=== PATIENT | male | born 1945 | race Caucasian/White ===

== ENCOUNTER → 2019-01-16 | Day surgery (SDC) | payer MEDICARE, OTHER ==
[2019-01-15 10:48] LABS: BASOPHILS % 0.2 % (0.0-1.0); EOSINOPHILS # (AUTO) 0.1 (0.0-0.4); EOSINOPHILS % 2.3 % (0.0-6.0); HEMATOCRIT 45.6 % (38.2-49.6); LYMPHOCYTES # (AUTO) 1.6 (1.0-3.2); LYMPHOCYTES % 32.1 % (18.0-39.1); MEAN CORPUSCULAR HEMOGLOBIN 31.2 pg (28-32); MEAN CORPUSCULAR HGB CONC 32.9 g/dL (31-35); MEAN CORPUSCULAR VOLUME 94.8 fL (81-99); MONOCYTES # (AUTO) 0.5 (0.2-0.8); MONOCYTES % 9.3 % (4.4-11.3); NEUTROPHILS # (AUTO) 2.7 (2.1-6.9); NEUTROPHILS % 55.9 % (38.7-80.0); PLATELET COUNT 215 x10e3/uL (140-360); RED BLOOD COUNT 4.81 x10e6/uL (4.3-5.7); RED CELL DISTRIBUTION WIDTH 14.5 % (11.7-14.4)
[~2019-01-16] MED LIST: ASPIRIN81 MG; ATORVASTATIN CA10 MG PO; FENTANYL CITRATE/PF 100MCG/2 ML INJ ONE; FUROSEMIDE40 MG PO; GABAPENTIN300 MG PO; HYDROCHLOROTHIA25 MG; LISINOPRIL-HCT1 EAC1; LOSARTAN POTASS25 MG; MAGNESIUM; METFORMIN HCL500 MG PO; METOPROLOL TART50 MG PO; MIDAZOLAM HCL 2 MG/2 ML VIAL ONE; POTASSIUM; PRO AIR HFA; PROPOFOL IV EMULSION 10 MG/ML 50 ML VIAL ONE; VITAMIN B-121000 MCG PO
--- OUTSIDE RECORDS SUMMARY | 2019-01-16 10:15 | XMS REPORT | Clinical Summary ---
Author Author [facility] Organization [facility] Address Unknown Phone Unavailable Care Team Providers Care Release Of Information Specialist Name Role Phone Asked, No Pcp PCP Unavailable Allergies No Known Allergies Medications End Date Status Medication Sig Dispensed Refills Start Date Active metFORMIN (GLUCOPHAGE) Take 500 mg 0 500 mg tablet by mouth daily with breakfast. Active atorvastatin (LIPITOR) 10 Take 10 mg by 0 MG tablet mouth daily. Active metoprolol tartrate Take 50 mg by 0 (LOPRESSOR) 50 mg tablet mouth 2 (two) times a day. Active hydroCHLOROthiazide Take 25 mg by 0 (HYDRODIURIL) 25 MG mouth daily. tablet Active lisinopril Take 10 mg by 0 (PRINIVIL,ZESTRIL) 10 mg mouth daily. tablet 05/20/2018 Discontinued metoprolol succinate XL Take 50 mg by 0 (TOPROL-XL) 50 mg 24 hr mouth 2 (two) tablet times a day. 05/21/2018 Discontinued metroNIDAZOLE (FLAGYL) Take 1 tablet 30 tablet 0 500 MG tablet (500 mg 8 total) by mouth 3 (three) times a day for 10 days. 05/21/2018 Discontinued acetaminophen-codeine Take 1 tablet 20 tablet 0 (TYLENOL WITH CODEINE #3) by mouth 8 300-30 mg per tablet every 4 (four) hours as needed for moderate pain for up to 10 days. 05/31/2018 metroNIDAZOLE (FLAGYL) Take 1 tablet 30 tablet 0 500 MG tablet (500 mg 8 total) by mouth 3 (three) times a day for 10 days. 05/31/2018 acetaminophen-codeine Take 1 tablet 20 tablet 0 (TYLENOL WITH CODEINE #3) by mouth 8 300-30 mg per tablet every 4 (four) hours as needed for moderate pain for up to 10 days. Active Problems Problem Noted Date Abdominal pain 05/20/2018 Encounters Care Team Description Date Type Specialty Chao Malin MD 10/10/2018 Telephone Pulmonology Bam Johnson Jr., MD Roberts, Matthew Thomas, Generalized abdominal pain (Primary Dx) 05/20/2018 Emergency General Internal Medicine - 05/21/2018 after 01/15/2018 Social History Date Tobacco Use Types Packs/Day Years Used Current Some Day Smoker 0.25 30 Smokeless Tobacco: Never Used Alcohol Use Drinks/Week oz/Week Comments Yes social Sex Assigned at Date Recorded Not on file Industry Job Start Date Occupation Not on file Not on file Not on file Travel End Travel History Travel Start No recent travel history available. Last Filed Vital Signs Time Taken Vital Sign Reading 05/21/2018 10:43 AM CDT Blood Pressure 103/51 05/21/2018 10:43 AM CDT Pulse 89 05/21/2018 10:43 AM CDT Temperature 36.7 C (98.1 F) 05/21/2018 10:43 AM CDT Respiratory Rate 16 05/21/2018 10:43 AM CDT Oxygen Saturation 95% - Inhaled Oxygen - Concentration 05/20/2018 5:57 AM CDT Weight 95.7 kg (211 lb) 05/20/2018 5:57 AM CDT Height 180.3 cm (5' 11") 05/20/2018 5:57 AM CDT Body Mass Index 29.43 Plan of Treatment Health Maintenance Due Date Last Done Comments COLON CANCER SCREENING 1997 SHINGLES VACCINES (#1) 1997 65+ PNEUMOCOCCAL VACCINE 2012 (1 of 2 - PCV13) PNEUMOCOCCAL 2012 POLYSACCHARIDE VACCINE AGE 65 AND OVER INFLUENZA VACCINE 06/21/2018 Procedures Comments Procedure Name Priority Date/Time Associated Diagnosis POC GLUCOSE Routine 05/21/2018 11:18 AM CDT US GALLBLADDER STAT 05/21/2018 7:59 AM CDT POC GLUCOSE Routine 05/21/2018 6:41 AM CDT ZZESTIMATED GFR Routine 05/21/2018 5:14 AM CDT HC COMPLETE BLD COUNT Routine 05/21/2018 W/AUTO DIFF 5:14 AM CDT BASIC METABOLIC PANEL Routine 05/21/2018 5:14 AM CDT POC GLUCOSE Routine 05/20/2018 9:15 PM CDT POC GLUCOSE Routine 05/20/2018 6:25 PM CDT POC GLUCOSE Routine 05/20/2018 12:[address] ABDOMEN PELVIS WO STAT 05/20/2018 CONTRAST 10:08 AM CDT TROPONIN Timed 05/20/2018 8:05 AM CDT ECG 12-LEAD STAT 05/20/2018 7:57 AM CDT ECG ED PRELIMINARY Routine 05/20/2018 INTERPRETATION 7:01 AM CDT LIPID PANEL Routine 05/20/2018 6:30 AM CDT HEMOGLOBIN A1C Routine 05/20/2018 6:30 AM CDT POC GLUCOSE Routine 05/20/2018 6:29 AM CDT ZZESTIMATED GFR STAT 05/20/2018 6:16 AM CDT LIPASE LEVEL STAT 05/20/2018 6:16 AM CDT COMPREHENSIVE METABOLIC STAT 05/20/2018 PANEL 6:16 AM CDT HC COMPLETE BLD COUNT STAT 05/20/2018 W/AUTO DIFF 6:16 AM CDT URINALYSIS SCREEN AND STAT 05/20/2018 MICROSCOPY, WITH REFLEX 6:10 AM CDT TO CULTURE URINE CULTURE STAT 05/20/2018 6:10 AM CDT after 01/15/2018 Results * POC glucose (05/21/2018 11:18 AM CDT) Only the most recent of 6 results within the time period is included. POC glucose 142 (H) 65 - 100 mg/dL [facility] Comment: PATHOLOGY AND Meter ID: [id number] GENOMIC MEDICINE Attendant Lodging Facilities: Viridiana Cotto Performing Organization Address City/State/Zipcode Phone Number [facility] [address] [place] [address] PATHOLOGY AND GENOMIC MEDICINE * US Gallbladder (05/21/2018 7:59 AM CDT) Narrative Performed At EXAMINATION:[facility]ICAL HISTORY:Gallbladder distension noted on CT scan COMPARISON:CT scan dated May 20, 2018 FINDINGS: Gallbladder: Echogenic shadowing calculi are identified. There is no gallbladder wall thickening or pericholecystic fluid suggest acute cholecystitis. CBD:5.5 mm , within normal limits. Portal vein: The portal vein demonstrates normal hepatopedal flow. The portal vein measures 9 mm. IMPRESSION: Cholelithiasis without sonographic evidence of cholecystitis. [facility]-[id number] Procedure Note Interface, Radiology Results Incoming - 05/21/2018 8:04 AM CDT EXAMINATION: US GALLBLADDER CLINICAL HISTORY: Gallbladder distension noted on CT scan COMPARISON: CT scan dated May 20, 2018 FINDINGS: Gallbladder: Echogenic shadowing calculi are identified. There is no gallbladder wall thickening or pericholecystic fluid suggest acute cholecystitis. CBD: 5.5 mm , within normal limits. Portal vein: The portal vein demonstrates normal hepatopedal flow. The portal vein measures 9 mm. IMPRESSION: Cholelithiasis without sonographic evidence of cholecystitis. [facility]-[id number] Performing Organization Address City/[facility]/Zipcode Phone Number [facility] [address] [place] [address] * Estimated GFR (05/21/2018 5:14 AM CDT) Only the most recent of 2 results within the time period is included. GFR Non Af Amer 54 (A) mL/min/1.73 m2 [facility] PATHOLOGY AND GENOMIC MEDICINE GFR Af Amer 66 mL/min/1.73 m2 [facility] Comment: PATHOLOGY AND Chronic kidney disease: <60 GENOMIC MEDICINE mL/min/1.73m2 Kidney failure: <15 mL/min/1.73m2 The estimated GFR is calculated from the IDMS-traceable Modification of Diet in Renal Disease Equation. The accuracy of the calculation is poor when the creatinine is normal. Calculated values >90 mL/min/1.73m2 are not reported. This equation has not been validated in children (<18 years), women, the elderly (>70 years), or ethnic groups other than Caucasians and Americans. Specimen Plasma specimen Performing Organization Address City/State/Zipcode Phone Number [place] [phone] [place] [address] PATHOLOGY AND GENOMIC MEDICINE * CBC with platelet and differential (05/21/2018 5:14 AM CDT) Only the most recent of 2 results within the time period is included. WBC 10.9 4.2 - 11.0 k/uL [facility] PATHOLOGY AND GENOMIC MEDICINE RBC 4.45 4.04 - 5.86 m/uL [facility] PATHOLOGY AND GENOMIC MEDICINE HGB 14.0 13.0 - 17.3 g/dL [facility] PATHOLOGY AND GENOMIC MEDICINE HCT 42.9 34.0 - 45.0 % [facility] PATHOLOGY AND GENOMIC MEDICINE MCV 96.4 80.0 - 98.0 fL [facility] PATHOLOGY AND GENOMIC MEDICINE MCH 31.5 27.0 - 34.0 pg [facility] PATHOLOGY AND GENOMIC MEDICINE MCHC 32.6 31.5 - 36.5 g/dL [facility] PATHOLOGY AND GENOMIC MEDICINE RDW - SD 49.1 37.0 - 51.0 fL [facility] PATHOLOGY AND GENOMIC MEDICINE MPV 10.2 7.4 - 10.4 fL [facility] PATHOLOGY AND GENOMIC MEDICINE Platelet count 208 150 - 400 k/uL [facility] PATHOLOGY AND GENOMIC MEDICINE Nucleated RBC 0.00 /100 WBC [facility] PATHOLOGY AND GENOMIC MEDICINE Neutrophils 75.4 (H) 36.0 - 66.0 % [facility] PATHOLOGY AND GENOMIC MEDICINE Lymphocytes 12.8 (L) 24.0 - 44.0 % [facility] PATHOLOGY AND GENOMIC MEDICINE Monocytes 10.9 (H) 0.0 - 6.0 % [facility] PATHOLOGY AND GENOMIC MEDICINE Eosinophils 0.2 0.0 - 6.0 % [facility] OF PATHOLOGY AND GENOMIC MEDICINE Basophils 0.2 0.0 - 1.2 % [facility] OF PATHOLOGY AND GENOMIC MEDICINE Immature granulocytes 0.5 0.0 - 1.0 % [facility] PATHOLOGY AND GENOMIC MEDICINE Specimen Blood Performing Organization Address City/State/Zipcode Phone Number [place] [address] [place] [id number] PATHOLOGY AND GENOMIC MEDICINE * Basic metabolic panel (05/21/2018 5:14 AM CDT) Sodium 137 135 - 150 mEq/L [facility] PATHOLOGY AND GENOMIC MEDICINE Potassium 4.0 3.5 - 5.0 mEq/L [facility] PATHOLOGY AND GENOMIC MEDICINE Chloride 101 98 - 112 mEq/L [facility] PATHOLOGY AND GENOMIC MEDICINE CO2 22 (L) 24 - 31 mmol/L [facility] PATHOLOGY AND GENOMIC MEDICINE Anion gap 14@ANIO 7 - 15 mEq/L [facility] [facility] PATHOLOGY AND GENOMIC MEDICINE BUN 16 7 - 18 mg/dL [facility] PATHOLOGY AND GENOMIC MEDICINE Creatinine 1.30 (H) 0.70 - 1.20 mg/dL [facility] PATHOLOGY AND GENOMIC MEDICINE Glucose 136 (H) 65 - 100 mg/dL [facility] PATHOLOGY AND GENOMIC MEDICINE Calcium 8.8 8.8 - 10.2 mg/dL [facility] PATHOLOGY AND GENOMIC MEDICINE Specimen Plasma specimen Performing Organization Address City/State/Zipcode Phone Number [place] [phone] [place] [address] PATHOLOGY AND [facility] * CT Abdomen Pelvis Wo Contrast (05/20/2018 10:08 AM CDT) Narrative Performed At EXAMINATION:CT ABDOMEN PELVIS WO CONTRAST [facility] CLINICAL HISTORY:abd painvomiting TECHNIQUE: Noncontrast images of the abdomen and pelvis were obtained without intravenous iodinated contrast. The lack of intravenous contrast limits assessment of the solid organs. CT imaging was performed with iterative reconstruction technique and/or automated exposure control to reduce radiation dose. COMPARISON: None available FINDINGS: ABDOMEN: No visible free air or fluid is seen in the abdomen. Limited assessment of the solid organs in the absence of intravenous contrast. 1. Liver: No focal liver lesion can be seen on this unenhanced examination. 2. Gallbladder: The gallbladder is mildly distended. 3. Spleen: The spleen is not enlarged. There are calcified granulomata throughout the spleen. 4. Pancreas: Mild fatty infiltration of the pancreas. No discrete pancreatic lesion can be visualized. There is no abnormal ductal dilatation. 5. Adrenal Glands: The adrenal glands are unremarkable. 6. Kidneys: Mild scarring of the kidneys bilaterally with cortical thinning. Perinephric stranding may be secondary to underlying medical renal disease although correlation with urinalysis is recommended. Definite solid mass or stone is seen in either kidney. There is no evidence of hydronephrosis, hydroureter, or discrete ureteral calculus seen. 7. Abdominal Aorta: Atherosclerosis and ectasia of the abdominal aorta without evidence of a discrete aneurysm. Atherosclerosis of the iliac vessels. 8. Nodes: No significant adenopathy is noted in the upper abdomen, retroperitoneum, or root of the mesentery. 9. Bowel: Pancolonic diverticulosis without findings to suggest acute diverticulitis. The appendix is tortuous but normal. There are no findings to suggest a small bowel obstruction. The stomach is decompressed but otherwise unremarkable. 10. Ascites: No ascites is seen. There is a small fat-containing umbilical hernia. PELVIS: 1.Pelvis: The prostate is enlarged. Bilateral fat-containing inguinal hernias. The bladder is unremarkable. Vascular calcifications. Dystrophic calcification in the left rectus femoris muscles consistent with old injury. There is no free fluid seen in the pelvis. No enlarged iliac chain or pelvic sidewall lymph nodes. 2. Bones: Degenerative changes of the osseous structures. No suspicious lesions. Prior fixation across the right sacroiliac joints. 3. Lung Bases: Atherosclerosis of the coronary arteries and thoracic aorta. There are scattered calcified granulomata in the lung bases as well as some paraseptal emphysematous changes in both lower lobes. Bilateral lower lobe scarring and atelectasis. IMPRESSION: 1. Pancolonic diverticulosis without findings to suggest acute diverticulitis. 2. No evidence of bowel obstruction. 3. Mild distention of the gallbladder which can be correlated with gallbladder ultrasound. [id number] Procedure Note [facility], Radiology Results - 05/20/2018 10:17 AM CDT EXAMINATION: CT ABDOMEN PELVIS WO CONTRAST CLINICAL HISTORY: abd pain vomiting TECHNIQUE: Noncontrast images of the abdomen and pelvis were obtained without intravenous iodinated contrast. The lack of intravenous contrast limits assessment of the solid organs. CT imaging was performed with iterative reconstruction technique and/or automated exposure control to reduce radiation dose. COMPARISON: None available FINDINGS: ABDOMEN: No visible free air or fluid is seen in the abdomen. Limited assessment of the solid organs in the absence of intravenous contrast. 1. Liver: No focal liver lesion can be seen on this unenhanced examination. 2. Gallbladder: The gallbladder is mildly distended. 3. Spleen: The spleen is not enlarged. There are calcified granulomata throughout the spleen. 4. Pancreas: Mild fatty infiltration of the pancreas. No discrete pancreatic lesion can be visualized. There is no abnormal ductal dilatation. 5. Adrenal Glands: The adrenal glands are unremarkable. 6. Kidneys: Mild scarring of the kidneys bilaterally with cortical thinning. Perinephric stranding may be secondary to underlying medical renal disease although correlation with urinalysis is recommended. Definite solid mass or stone is seen in either kidney. There is no evidence of hydronephrosis, hydroureter, or discrete ureteral calculus seen. 7. Abdominal Aorta: Atherosclerosis and ectasia of the abdominal aorta without evidence of a discrete aneurysm. Atherosclerosis of the iliac vessels. 8. Nodes: No significant adenopathy is noted in the upper abdomen, retroperitoneum, or root of the mesentery. 9. Bowel: Pancolonic diverticulosis without findings to suggest acute diverticulitis. The appendix is tortuous but normal. There are no findings to suggest a small bowel obstruction. The stomach is decompressed but otherwise unremarkable. 10. Ascites: No ascites is seen. There is a small fat-containing umbilical hernia. PELVIS: 1. Pelvis: The prostate is enlarged. Bilateral fat-containing inguinal hernias. The bladder is unremarkable. Vascular calcifications. Dystrophic calcification in the left rectus femoris muscles consistent with old injury. There is no free fluid seen in the pelvis. No enlarged iliac chain or pelvic sidewall lymph nodes. 2. Bones: Degenerative changes of the osseous structures. No suspicious lesions. Prior fixation across the right sacroiliac joints. 3. Lung Bases: Atherosclerosis of the coronary arteries and thoracic aorta. There are scattered calcified granulomata in the lung bases as well as some paraseptal emphysematous changes in both lower lobes. Bilateral lower lobe scarring and atelectasis. IMPRESSION: 1. Pancolonic diverticulosis without findings to suggest acute diverticulitis. 2. No evidence of bowel obstruction. 3. Mild distention of the gallbladder which can be correlated with gallbladder ultrasound. [id number] Performing Organization Address City/State/Zipcode Phone Number [employer] [address] [place] [address] * Troponin (05/20/2018 8:05 AM CDT) Troponin <0.30 0.00 - 0.30 ng/mL [facility] Comment: PATHOLOGY AND 0.11 - 1.49 [employer] ng/mlMay indicate increased risk of acute coronary syndrome. >=1.5 ng/ml Consistent with acute myocardial infarction. The diagnostic value of a single normal or non-diagnostic result is questionable.Serial samples at 2-6 hour intervals are required to rule out acute myocardial injury. Specimen Plasma specimen Performing Organization Address City/[facility]/Zipcode Phone Number [facility] [address] [place] [address] PATHOLOGY AND GENOMIC MEDICINE * ECG 12 lead (05/20/2018 7:57 AM CDT) Ventricular rate 77 [facility] Atrial rate 77 [facility] PA interval 186 [facility] QRSD interval 90 [facility] QT interval 388 [facility] QTC interval 439 [facility] P axis 1 81 [facility] QRS axis 1 83 [facility] T wave axis 74 [facility] EKG impression Normal sinus rhythm-Normal [facility] ECG-In automated comparison with ECG of 12-DEC-2015 07:42,-premature ventricular complexes are no longer present- Performing Organization Address City/State/[facility] Phone Number [facility] [address] [place] [address] * ECG ED Preliminary Interpretation - NOT AN ORDER (05/20/2018 7:01 AM CDT) Narrative Performed At Bam Johnson Jr., MD 05/22/20189:25 AM ECG ED Preliminary Interpretation - Not an Order Performed by: BAM JOHNSON JR. Authorized by: BAM JOHNSON JR. * Hemoglobin A1c (05/20/2018 6:30 AM CDT) Hemoglobin A1C 6.6 (H) 4.0 - 6.0 % [facility] Comment: PATHOLOGY AND GENOMIC MEDICINE Less than 6% - Goal of therapy for Type II Diabetes Less than 7%-Goal of therapy for Type I Diabetes Less than 8%-Accepta ble control for Type I or Type II Diabetes Greater than 8%-Unacceptabl e control; action indicated. ([id number]) Specimen Blood Performing Organization Address City/[facility]/Zipcode Phone Number [facility] [address] [place] [address] PATHOLOGY AND GENOMIC MEDICINE * Lipid panel (05/20/2018 6:30 AM CDT) Cholesterol 116 0 - 199 mg/dL [facility] PATHOLOGY AND GENOMIC MEDICINE Triglycerides 75 0 - 149 mg/dL [facility] PATHOLOGY AND GENOMIC MEDICINE HDL cholesterol 40 40 - 9,999 mg/dL [facility] PATHOLOGY AND GENOMIC MEDICINE LDL cholesterol 65Comment: Result obtained by 0 - 99 mg/dL [facility] direct LDL measurement PATHOLOGY AND POWWOW MEDICINE Lipid panel See below [facility] interpretation Comment: PATHOLOGY AND Total Cholesterol GENOMIC MEDICINE (mg/dL) LDL Cholesterol (mg/dL) <200 Desirable <100 Optimal 200-239Borderline -[id number] or above optimal >=240High 130-159Borderline- high 160-189High >=190Very high HDL Cholesterol (mg/dL) Triglycerides (mg/dL) <40Low <150 Normal >=60 High 150-199Borderline- high 200-499High >=500Very high Risk Catergories that modify LDL goals. Risk Catergories LDL goal (mg/dL) CHD and CHD risk equivalent <100 (10-year risk >20%) Multiple (2+) risk factors <130 (10-year risk=<20%) 0-1 risk factors <160 (<10-year risk) Defining levels of lipids in metabolic syndrome Triglycerides >=150 mg/dL HDL Cholesterol Men <40 mg/dL Women <50 mg/dL Non-HDL cholesterol is a second target for therapy in persons with high triglycerides (>=200 mg/dL) Specimen Plasma specimen Performing Organization Address City/[facility]/Zipcode Phone Number [facility] [address] [place] [address] PATHOLOGY AND GENOMIC MEDICINE * Lipase level (05/20/2018 6:16 AM CDT) Lipase 28 13 - 60 U/L [facility] PATHOLOGY AND [facility]WOW MEDICINE Specimen Plasma specimen Performing Organization Address City/[facility]/Zipcode Phone Number [place] [address] [place] [address] PATHOLOGY AND GENOMIC MEDICINE * Comprehensive metabolic panel (05/20/2018 6:16 AM CDT) Sodium 136 135 - 150 mEq/L [facility] PATHOLOGY AND GENOMIC MEDICINE Potassium 4.4 3.5 - 5.0 mEq/L [facility] PATHOLOGY AND GENOMIC MEDICINE Chloride 100 98 - 112 mEq/L [facility] PATHOLOGY AND GENOMIC MEDICINE CO2 26 24 - 31 mmol/L [facility] PATHOLOGY AND GENOMIC MEDICINE Anion gap 10@ANIO 7 - 15 mEq/L [facility] PATHOLOGY AND GENOMIC MEDICINE BUN 26 (H) 7 - 18 mg/dL [facility] PATHOLOGY AND GENOMIC MEDICINE Creatinine 1.50 (H) 0.70 - 1.20 mg/dL [facility] PATHOLOGY AND GENOMIC MEDICINE Glucose 139 (H) 65 - 100 mg/dL [facility] PATHOLOGY AND GENOMIC MEDICINE Calcium 9.4 8.8 - 10.2 mg/dL [facility] PATHOLOGY AND GENOMIC MEDICINE Protein 8.5 (H) 6.3 - 8.3 g/dL [facility] PATHOLOGY AND GENOMIC MEDICINE Albumin 4.3 3.5 - 5.0 g/dL [facility] PATHOLOGY AND GENOMIC MEDICINE A/G ratio 1.0 0.7 - 3.8 [facility] PATHOLOGY AND GENOMIC MEDICINE Alkaline phosphatase 100 0 - 129 U/L [facility] PATHOLOGY AND GENOMIC MEDICINE AST 27 10 - 50 U/L [facility] PATHOLOGY AND GENOMIC MEDICINE ALT 22 5 - 50 U/L [facility] PATHOLOGY AND GENOMIC MEDICINE Total bilirubin 0.5 0.2 - 1.2 mg/dL [facility] PATHOLOGY AND GENOMIC MEDICINE Specimen Plasma specimen Performing Organization Address City/State/Zipcode Phone Number [place] [address] [place] [address] PATHOLOGY AND GENOMIC MEDICINE * Urinalysis screen and microscopy, with reflex to culture (05/20/2018 6:10 AM CDT) Specimen site Clean catch [facility] PATHOLOGY AND GENOMIC MEDICINE Color, UA Yellow [facility] PATHOLOGY AND GENOMIC MEDICINE Appearance, UA Clear [facility] PATHOLOGY AND GENOMIC MEDICINE Specific gravity, UA 1.015 1.001 - 1.035 [facility] PATHOLOGY AND GENOMIC MEDICINE pH, UA 6.0 5.0 - 8.5 [facility] PATHOLOGY AND GENOMIC MEDICINE Protein, UA Negative Negative [facility] [place] [facility]OMIC MEDICINE Glucose, UA Negative Negative [facility] [place] [facility]OLOGY AND GENOMIC MEDICINE Ketones, UA Negative Negative [facility] [place] [facility] PATHOLOGY AND GENOMIC MEDICINE Bilirubin, UA Negative Negative [facility] [place] [facility] PATHOLOGY AND GENOMIC MEDICINE Blood, UA Negative Negative [facility] [place] [facility] PATHOLOGY AND GENOMIC MEDICINE Nitrite, UA Negative Negative [facility] [place] [facility] PATHOLOGY AND GENOMIC MEDICINE Urobilinogen, UA Negative <2.0 [facility] [place] [facility]OLOG[facility]OMIC MEDICINE Leukocyte esterase, UA Negative Negative [facility] [place] [facility] PATHOLOGY AND GENOMIC MEDICINE WBC, UA <1 0 - 1 /HPF [facility] [place] [facility] PATHOLOGY AND GENOMIC MEDICINE RBC, UA <1 0 - 5 /HPF [facility] [place] [facility] PATHOLOGY AND GENOMIC MEDICINE Bacteria, UA None seen None seen [facility] [place] [facility] PATHOLOGY AND GENOMIC MEDICINE Yeast, UA None seen [facility] [place] [facility] PATHOLOGY AND GENOMIC MEDICINE Yeast with pseudohyphae, None seen [facility] [place] [facility] OF UA PATHOLOGY AND GENOMIC MEDICINE Specimen Urine Performing Organization Address City/State/Zipcode Phone Number [facility] [address] [place] [address] PATHOLOGY AND GENOMIC MEDICINE * Urine culture (05/20/2018 6:10 AM CDT) Urine culture SEE COMMENTComment: [facility] [place] [facility] OF Bacteriuria screen negative. PATHOLOGY AND GENOMIC MEDICINE Performing Organization Address City/State/Zipcode Phone Number [facility] [address] [place] [address] PATHOLOGY AND GENOMIC MEDICINE after 01/15/2018 Insurance Payer Benefit Subscriber ID Type Phone Address Plan / Group MEDICARE MEDICARE xxxxxxxxxx Medicare [place], [place] PART A AND B COMMERCIAL MISC MISC xxxxxxxxxx Commercial COMMERCIAL Advance Directives Patient has advance care planning documents on file. For more information, brandon suggs contact: Amari Diallo [address] [place] [address]
--- OUTSIDE RECORDS SUMMARY | 2019-01-16 10:15 | XMS REPORT | Continuity of Care Document ---
Author Author [facility] Interface Address Unknown Phone Unavailable Problems Problem Status Onset Date Classification Date Reported Comments Source DX: R06.02=SHORTNESS OF BREATH Active 11/03/2018 [facility] 726.2 - [place] Active 01/19/2012 [facility] SHORTNESS OF BREATH Active [facility] Medications Medication Details Route Status Patient Instructions Ordering Provider Order Date Source Allergies, Adverse Reactions, Alerts Substance Category Reaction Severity Reaction type Status Date Reported Comments Source Immunizations Immunization Date Given Site Status Last Updated Comments Source Results Order Name Results Value Reference Range Date Interpretation Comments Source Chest Pulmonary Embolism CTA Chest Pulmonary Embolism CTA Clinical Indication: high resolution - R06.02 Shortness of breath; patient states he gets short of breath when he plays baseball. Reports no other symptoms. Comparison: None TECHNIQUE: Sequential trans-axial images were obtained with a multi-detector helical CT after iodinated contrast administration. Coronal and sagittal reconstructions were obtained. 3-D MIP reconstructions performed. 100 cc of Omnipaque 350 contrast material was used for the exam. CT imaging performed at this location utilizes radiation dose optimization techniques which include one or more of the following: -Automated exposure control -Adjustment of the mA and/or kV according to patient size -Use of iterative reconstruction technique CT Radiation Dose DLP 356 mGy-cm FINDINGS: Evaluation of the segmental and subsegmental pulmonary arterial branches is somewhat limited due to the presence of motion artifact and beam hardening artifact degrading the images. LUNG PARENCHYMA AND PLEURA: Multiple calcified punctate pulmonary granulomas are noted throughout the right lung. Multiple pulmonary blebs of varying sizes are noted, primarily in the bilateral lung bases. Bibasilar atelectatic stranding is also appreciated. There is no consolidation. There is no interstitial lung disease. There are no pleural effusions. There is no pneumothorax. AIRWAY: The central airway is normal. MEDIASTINUM: There is no mediastinal lymphadenopathy. Multiple right-sided calcified hilar and mediastinal lymph nodes are noted. The thyroid lobes appear somewhat prominent/enlarged in size. HEART: The cardiac chambers appear unremarkable. There is no pericardial effusion. Mild atherosclerotic burden is noted in the visualized portions of the coronary arteries. VASCULAR STRUCTURES: There are no proximal segmental or larger pulmonary emboli noted. The main, right and left pulmonary arteries are normal. The great vessels are unremarkable. The thoracic aorta is unremarkable. There is no thoracic aortic dissection or aneurysm. Mild atherosclerotic burden is appreciated in the descending aorta. The superior vena cava is unremarkable. OSSEOUS STRUCTURES: An age-indeterminate anterior compression deformity involving the T7 vertebral body is noted, with approximately 50% height loss. Mild multilevel degenerative changes are noted in portions of the visualized spine. Mild degenerative changes are also appreciated in the bilateral sternoclavicular joints. VISUALIZED UPPER ABDOMEN: The visualized upper abdomen is unremarkable for acute pathology. Multiple calcified splenic granulomas are appreciated. IMPRESSION: 1. Evaluation of the segmental and subsegmental pulmonary arterial branches somewhat limited due to the presence of motion artifact and beam hardening artifact degrading the images. 2. No CT evidence of central pulmonary embolism. 3. Multiple pulmonary blebs of varying sizes, noted primarily in the bilateral lung bases. 4. Multiple right lung and splenic punctate calcified granulomas along with calcified lymph nodes in the mediastinum and right hilar region. Constellation of findings are suggestive of a prior granulomatous insult. 5. Age-indeterminate anterior compression deformity involving the T7 vertebral body, with approximately 50% height loss. Correlation with point tenderness is recommended for further evaluation, as clinically indicated. 6. Additional chronic/incidental findings, as detailed above. SL: [id number] 11/07/2018 - - Read by: Selina Dorsey DO Dictated Date/time: 11/07/18 15:54 Electronically Signed by: Selina Dorsey DO 11/07/18 16:18 FINAL REPORT [facility] Vital Signs Vital Sign Value Date Comments Source Encounters Location Location Details Encounter Type Encounter Number Reason For Visit Attending Provider ADM Date DC Date Status Source OD [id number] 726.2 - [place] BRANDY KLEINER Cancel [facility] OD [id number] 726.2 - [place] BRANDY WEINER Cancel [facility] Procedures Procedure Code Date Perfomer Comments Source
[2019-01-16 15:05] VITALS: BP 123/79
== END | disposition home or self-care (01) ==
LOC: OR 10:11
PROVIDERS: ATTEND Internal Medicine Gastroenterology
DX: Z12.11 Encounter for screening for malignant neoplasm of colon (principal); D12.2 Benign neoplasm of ascending colon; D12.3 Benign neoplasm of transverse colon; I10 Essential (primary) hypertension; E78.5 Hyperlipidemia, unspecified; K57.30 Diverticulosis of large intestine without perforation or abscess without bleeding; K64.8 Other hemorrhoids; E11.9 Type 2 diabetes mellitus without complications; J44.9 Chronic obstructive pulmonary disease, unspecified; Z86.010 Personal history of colon polyps; Z79.84 Long term (current) use of oral hypoglycemic drugs; Z79.82 Long term (current) use of aspirin
CPT/HCPCS: 36415 ×2; 45384; 45385; 82948; 85025; 88305; 93005; J2250; J2704